=== PATIENT | female | born 1985 | race African-American/Black ===

== ENCOUNTER 2018-03-14 17:21 | Emergency (ER) | payer BC ==
[~2018-03-14] VITALS: Ht 167.6 cm; Wt 94.5 kg
[~2018-03-14 17:21] MED LIST: NONE PER PT
[2018-03-14 18:18] LABS: BASOPHILS # (AUTO) 0.04 x10^3/uL (0-0.1); BASOPHILS % (AUTO) 0 % (0-1); EOSINOPHILS # (AUTO) 0.11 x10^3/uL (0-0.4); EOSINOPHILS % (AUTO) 1 % (1-7); LYMPHOCYTES # (AUTO) 2.03 x10^3/uL (1-3.4); LYMPHOCYTES % (AUTO) 21 % (22-44); MD NO; MEAN CORPUSCULAR VOLUME 81.1 fL (80-100); MEAN PLATELET VOLUME 10.1 fL (7.4-10.4); MONOCYTES # (AUTO) 0.71 x10^3/uL (0.2-0.8); MONOCYTES % (AUTO) 7 % (2-9); NEUTROPHILS # (AUTO) 6.75 x10^3/uL (1.8-6.8); NEUTROPHILS % (AUTO) 70 % (42-75); PLATELET COUNT 266 x10^3/uL (130-400); RED CELL DISTRIBUTION WIDTH 17.5 % (9.6-15.2)
[2018-03-14 18:22] LABS: ALANINE AMINOTRANSFERASE 17 U/L (12-78); ALBUMIN 3.6 g/dL (3.4-5.0); ANION GAP 9 mmol/L (5-15); CALCIUM 9.2 mg/dL (8.5-10.1); CHLORIDE 110 mmol/L (98-107); CREATININE 0.94 mg/dL (0.55-1.02)
[2018-03-14 18:27] LABS: ALKALINE PHOSPHATASE 62 U/L (45-117); BILIRUBIN,TOTAL 0.4 mg/dL (0.2-1.0); TOTAL PROTEIN 7.3 g/dL (6.4-8.2)
[2018-03-14 18:45] LABS: CULTURE INDICATED? YES; MICROSCOPIC INDICATED
[2018-03-14 19:58] VITALS: BP 111/66
== END 2018-03-14 20:00 | disposition home or self-care (01) ==
LOC: ED 19:20
DX: R00.2 Palpitations (principal); N30.00 Acute cystitis without hematuria
CPT/HCPCS: 36415; 71045; 80053; 81001; 84439; 84443; 84703; 85025; 87077; 87086; 87186; 93005; 99285

== ENCOUNTER → 2018-03-31 | Outpatient (CLI) | payer BC ==
[~2018-03-31] MED LIST changes: +FERR-46 PO
== END | disposition home or self-care (01) ==
LOC: STAR 11:34
PROVIDERS: ATTEND Obstetrics & Gynecology
DX: Z02.9 Encounter for administrative examinations, unspecified (principal)

== ENCOUNTER 2018-04-14 05:32 | Day surgery (SDC) | payer BC ==
[~2018-04-14] VITALS: Ht 167.6 cm; Wt 91.8 kg
[2018-04-14] MEDS ORDERED: LACTATED RINGERS 1,000 ML IV SCH (06:17)
[2018-04-14 06:50] VITALS: BP 110/78
[2018-04-14] MEDS ORDERED: BUPIVACAINE/PF-EPI 0.25% 1:200K ONE (06:56)
[2018-04-14] MEDS ORDERED: FLUORESCEIN SODIUM 500 MG/5 ML ONE (06:56)
[2018-04-14] MEDS ORDERED: PROPOFOL 10 MG/ML, 20ML ONE (07:00)
[2018-04-14] MEDS ORDERED: FAMOTIDINE 20 MG TABLET PO ONE (07:00)
[2018-04-14] MEDS ORDERED: GABAPENTIN 300 MG CAPSULE PO ONE (07:00)
[2018-04-14] MEDS ORDERED: ACETAMINOPHEN 500 MG TABLET PO ONE (07:00)
[2018-04-14] MEDS ORDERED: OxyconTIN ER 10 MG TAB.ER PO ONE (07:00)
[2018-04-14] MEDS ORDERED: FENTANYL PF 250 MCG/5ML ONE (07:00)
[2018-04-14] MEDS ORDERED: MIDAZOLAM 1 MG/ML, 2ML ONE (07:00)
[2018-04-14] MEDS ORDERED: ROCURONIUM 10MG/ML,5ML ONE (07:00)
[2018-04-14] MEDS ORDERED: DEXAMETHASONE 4 MG/ML, 1ML ONE ×2 (07:05)
[2018-04-14] MEDS ORDERED: CEFAZOLIN 1,000 MG ONE ×2 (07:41)
[2018-04-14] MEDS ORDERED: BUPIVACAINE/PF-EPI 0.25% 1:200K IM ONE (07:51)
[2018-04-14] MEDS ORDERED: HYDROmorphone 1 MG/ML, 1ML IV PRN (08:00)
[2018-04-14] MEDS ORDERED: FENTANYL PF 100 MCG/2ML IV PRN (08:00)
[2018-04-14] MEDS ORDERED: PROMETHAZINE 25 MG/ML, 1ML IV PRN (08:00)
[2018-04-14] MEDS ORDERED: LABETALOL 5MG/ML, 20ML IV PRN (08:00)
[2018-04-14] MEDS ORDERED: OXYcodone 5 MG/5 ML ORAL.SOL UDC PO PRN (08:00)
[2018-04-14] MEDS ORDERED: ONDANSETRON 2MG/ML, 2ML IV PRN (08:00)
[2018-04-14] MEDS ORDERED: hydrALAzine 20 MG/ML, 1ML IV PRN (08:00)
[2018-04-14] MEDS ORDERED: MEPERIDINE/PF 25MG/0.5ML IVPush PRN (08:00)
[2018-04-14] MEDS ORDERED: NEOSTIGMINE 1 MG/ML, 10ML ONE (08:25)
[2018-04-14] MEDS ORDERED: GLYCOPYRROLATE 0.4 MG/2 ML, 2ML ONE (08:25)
[2018-04-14] MEDS ORDERED: ONDANSETRON 2MG/ML, 2ML ONE ×2 (08:25→08:55)
[2018-04-14] MEDS ORDERED: FENTANYL PF 100 MCG/2ML ONE (08:55)
[2018-04-14] MEDS ORDERED: OXYcodone 5 MG/5 ML ORAL.SOL UDC ONE (08:56)
[2018-04-14] MEDS ORDERED: KETOROLAC 30 MG/1 ML IVPush STA (09:55)
[2018-04-14] MEDS ORDERED: KETOROLAC 30 MG/1 ML ONE (09:59)
[2018-04-14] MEDS ORDERED: PROMETHAZINE 25 MG/ML, 1ML ONE (11:00)
== END 2018-04-14 15:50 | disposition home or self-care (01) ==
LOC: OUT 05:32
PROVIDERS: ATTEND Obstetrics & Gynecology
DX: N94.6 Dysmenorrhea, unspecified (principal); N93.8 Other specified abnormal uterine and vaginal bleeding; N84.0 Polyp of corpus uteri; Z90.722 Acquired absence of ovaries, bilateral; Z98.890 Other specified postprocedural states; Z79.899 Other long term (current) drug therapy
CPT/HCPCS: 58260; 88307; J0690; J1100; J1885; J2250; J2405; J2550; J2704; J2710; J3010; J7120

== ENCOUNTER 2019-03-30 11:14 | Emergency (ER) | payer BC, OTHER ==
[~2019-03-30] VITALS: Ht 167.6 cm; Wt 99.0 kg
[2019-03-30] MEDS ORDERED: SODIUM CHLORIDE FLUSH 10ML SYR IVF ONE (12:00)
[2019-03-30 12:12] LABS: BASOPHILS # (AUTO) 0.03 x10^3/uL (0-0.1); BASOPHILS % (AUTO) 0 % (0-1); EOSINOPHILS % (AUTO) 1 % (1-7); LYMPHOCYTES # (AUTO) 1.76 x10^3/uL (1-3.4); LYMPHOCYTES % (AUTO) 21 % (22-44); MD NO; MEAN CORPUSCULAR HEMOGLOBIN 27.9 pg (27.0-34.8); MEAN CORPUSCULAR HGB CONC 32.8 g/dL (32.4-35.8); MEAN CORPUSCULAR VOLUME 85.1 fL (80-100); MEAN PLATELET VOLUME 9.3 fL (7.4-10.4); MONOCYTES % (AUTO) 6 % (2-9); NEUTROPHILS # (AUTO) 6.01 x10^3/uL (1.8-6.8); NEUTROPHILS % (AUTO) 72 % (42-75); PLATELET COUNT 268 x10^3/uL (130-400); RED BLOOD COUNT 4.87 x10^6/uL (3.82-5.3); RED CELL DISTRIBUTION WIDTH 15.3 % (9.6-15.2)
--- NOTE | 2019-03-30 12:17 | NUR ---
PT WALKED BACK TO ROOM WITH STEADY GAIT. CHANGED INTO GOWN AND VITALS TAKEN. MD AT BEDSIDE ASSESSING PT
[2019-03-30 12:18] VITALS: BP 103/61
[2019-03-30 12:20] LABS: ALANINE AMINOTRANSFERASE 15 U/L (12-78); ALBUMIN 3.9 g/dL (3.4-5.0); ANION GAP 7 mmol/L (5-15); CALCIUM 8.9 mg/dL (8.5-10.1); CHLORIDE 110 mmol/L (98-107)
[2019-03-30 12:22] LABS: ALKALINE PHOSPHATASE 69 U/L (45-117); BILIRUBIN,TOTAL 0.4 mg/dL (0.2-1.0)
[2019-03-30 13:04] LABS: CULTURE INDICATED? YES; MICROSCOPIC INDICATED
--- NOTE | 2019-03-30 13:41 | NUR ---
Justina giles in [facility] - 03/30/19 at 1342 by AUREA KAITLINAR TELEPHONE HAND-OFF REPORT GIVEN TO YUNIER SCHMIDT. PATIENT READY TO GO TO HOSPITAL ROOM.
== END 2019-03-30 13:56 | disposition home or self-care (01) ==
LOC: ED 13:30
DX: N30.00 Acute cystitis without hematuria (principal); Z90.710 Acquired absence of both cervix and uterus
CPT/HCPCS: 36415; 80053; 81001; 85025; 87086; 99283